=== PATIENT | female | born 1960 | race Caucasian/White ===

== ENCOUNTER 2023-12-14 15:41 | Outpatient (CLI) | payer BC, MEDICAID, SELFPAY ==
--- NOTE | ~2023-12-14 | XR_ITS ---
XR hip RT min 2V DATE: 12/14/2023 16:17 INDICATION: Right hip and lower back pain for 2 weeks TECHNIQUE: AP and lateral views COMPARISON: None FINDINGS: No fracture or dislocation of the right hip or avascular necrosis or bone destruction. Righ t hip joint space appears well preserved. The pubic symphysis and right sacroiliac joint are intact. IMPRESSION: Negative right hip Reviewed, dictated and finalized at location [facility]. 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
--- NOTE | ~2023-12-14 | XR_ITS ---
XR lumbar spine 2-3V DATE: 12/14/2023 16:15 INDICATION: Right hip and lower back pain for 2 years TECHNIQUE: AP, lateral and coned lateral lumbosacral views COMPARISON: None FINDINGS: There is osteopenia. No fracture or bone destruction. There is minimal degenerative spurring of the lumbar spine, but lumbar and lumbosacral interspaces ar e well preserved. Lumbar pedicles are intact. IMPRESSION: Minimal degenerative change Osteopenia Reviewed, dictated and finalized at location [facility]. [facility]
== END 2023-12-14 15:42 | disposition home or self-care (01) ==
LOC: CHSIMG 15:48
PROVIDERS: PCP Registered Nurse; Visit Provider Registered Nurse
DX: M25.551 Pain in right hip (principal); M54.50 Low back pain, unspecified; M85.88 Other specified disorders of bone density and structure, other site
CPT/HCPCS: 72100; 73502

== ENCOUNTER 2023-12-28 23:44 | Emergency (ER) | payer MEDICAID, SELFPAY ==
--- NOTE | ~2023-12-28 | CT_ITS ---
CT of the Abdomen and Pelvis: Indication: Abdominal pain Technique: 2.5 mm axial scans were obtained through the abdomen and pelvis following intravenous adm inistration of 100 cc of Omnipaque 350. Dose reduction technique was used on this scan by utilizing a utomated exposure control and iterative reconstruction technique. The dose-length product (DLP) was 9 23.82 mGy-cm. Findings: Scans through the lung bases are unremarkable. Small hiatal hernia present. The liver, spleen, pancreas, gallbladder, adrenals and kidneys are within normal limits. No evidence of aortic aneurysm. No lymphadenopathy. No bowel obstruction or bowel wall thickening. There is no evidence to suggest acute appendicitis. Sm all fat-containing ventral hernia present with small amount of fluid within the hernia. Images through the pelvis were performed. Urinary bladder unremarkable. No adnexal mass seen. No asci chuck. Impression: Small umbilical hernia with fat and small amount of fluid present. Small hiatal hernia. Reviewed, dictated and finalized at [facility]. NET MAKER Impression: Small umbilical hernia with fat and small amount of fluid present. Small hiatal hernia.
[2023-12-28 23:44] VITALS: BP 151/81; PULSE 89; RESP 18; TEMP 36.1; O2SAT 98
--- NOTE | 2023-12-28 23:46 | ED.ABDPAIN ---
HPI - Abdominal Pain General Chief Complaint: Abdominal Pain Stated Complaint: abdominal pain Time Seen by Provider: 12/28/23 23:45 Source: patient Mode of arrival: ambulatory Limitations: no limitations History of Present Illness HPI narrative: 63-year-old female with a history of obesity,GERD status post surgery, hypothyroidism, panic attacks presents to the ER with a 2 week history of -- right flank abdominal pain. She went to her primary care physician and received naproxen without any improvement in abdominal pain. No fever or chills -- 2 episodes of vomiting. No diarrhea. No dysuria or hematuria. MD elicited complaint: abdominal pain and flank pain Pertinent past history: other ( GERD) Onset (ago): week(s) ( 2 weeks) Pain Consistency: constant Location: RLQ Severity: moderate Quality: aching Radiation: none Migration to: no migration Exacerbating factors: nothing Relieving factors: nothing Associated symptoms: nausea and vomiting Related Data Home Medications Medication Instructions Recorded Confirmed Dialyvite Vitamin D 1 pill PO DAILY 12/28/23 12/29/23 Unithroid 137 mcg PO DAILY 12/28/23 12/29/23 duloxetine 20 mg capsule,delayed 20 mg PO DAILY 12/28/23 12/29/23 release (Cymbalta) metformin 500 mg tablet 500 mg PO DAILY 12/28/23 12/29/23 naproxen 500 mg tablet 500 mg PO DAILY 12/28/23 12/29/23 omeprazole 20 mg PO DAILY 12/28/23 12/29/23 Allergies Allergy/AdvReac Type Severity Reaction Status Date / Time adhesive tape Allergy Other Verified 12/28/23 23:57 pseudoephedrine Allergy Other Verified 12/28/23 23:57 [From [facility]] Review of Systems Review of Systems: All systems reviewed & are unremarkable except as noted in HPI and below Constitutional: Constitutional: Reports as per HPI and Reports no additional constitutional complaints Eyes: Eyes: Reports as per HPI and Reports no additional eye complaints ENT: Reports system reviewed and no additional complaints, except as documented and Reports as per HPI Cardiovascular: Cardiovascular: Reports as per HPI and Reports no additional cardiovascular complaints Respiratory: Respiratory: Reports as per HPI and Reports no additional respiratory complaints Gastrointestinal: Gastrointestinal: Reports as per HPI, Reports no additional gastrointestinal complaints, Reports abdominal pain, Reports nausea and Reports vomiting Genitourinary: Genitourinary: Reports no additional female genitourinary complaints Musculoskeletal: Musculoskeletal: Reports no additional musculoskeletal complaints Integumentary/Breasts: Skin/Breast: Reports system reviewed and no additional complaints, except as docu and Reports as per HPI Neurologic: Reports system reviewed and no additional complaints, except as documented and Reports as per HPI Psychiatric: Psychiatric: Reports no additional psychiatric complaints and Reports as per HPI Endocrine: Endocrine: Reports no additional endocrine complaints and Reports as per HPI Hematologic/Lymphatic: Hematologic/Lymphatic: Reports no additional hematologic/lymphatic complaints and Reports as per HPI Allergic/Immunologic: Allergic/Immunologic: Reports no additional allergic/immunologic complaints and Reports as per HPI PMFSH Past Medical History Medical History (Updated 12/29/23 @ 02:38 by Addison Delgado MD) section wound complication Hypothyroidism Obesity Surgical History Surgical History (Updated 12/28/23 @ 23:59 by Addison Delgado MD) H/O rotator cuff surgery History of fundoplication Exam Const: General: healthy appearing and no acute distress Nutritional Appearance: well nourished and obese Orientation/consciousness: patient oriented x3 Limitations: no limitations HENMT: Head: normal to inspection Ears: external ears normal Face/Nose/Sinus: Normal external nose present Face and sinus: normal facial exam Mouth: Yes Normal oral and palatal mucosa present Throat: posterior oropharynx
--- NOTE | 2023-12-29 00:02 | PC.NURSE ---
phlebotomy at bedside for lab draw.
[2023-12-29 00:07] LABS: Basophils Absolute Auto 0.03 K/mm3 (0.00-0.10); Basophils Percent Auto 0.4 % (0.0-1.0); Eosinophils Absolute Auto 0.32 K/mm3 (0.02-0.50); Eosinophils Percent Auto 3.8 % (1.0-6.0); Hematocrit 40.7 % (35.0-49.0); Hemoglobin 12.5 g/dL (12.0-15.0); Immature Granulocyte Absolute 0.03 K/mm3 (0.00-0.00); Immature Granulocyte Percent A 0.4 % (0.0-0.0); Lymphocytes Absolute Auto 2.62 K/mm3 (1.10-4.50); Mean Corpuscular HGB Conc 30.7 g/dL (32.0-36.0); Mean Corpuscular Hemoglobin 25.7 pg (27.0-31.0); Mean Corpuscular Volume 83.6 fL (78.0-102.0); Mean Platelet Volume 9.6 fl (9.2-11.8); Monocytes Absolute Auto 0.77 K/mm3 (0.10-0.90); Monocytes Percent Auto 9.1 % (2.0-11.0); Neutrophils Absolute Auto 4.7 K/mm3 (1.7-7.2); Neutrophils Percent Auto 55.3 % (50.0-70.0); Platelet Count Result 270 K/mm3 (150-420); Red Blood Count 4.87 M/mm3 (4.20-5.40); Red Cell Distribution Width 14.8 % (11.6-14.4); White Blood Count 8.5 K/mm3 (4.8-10.8)
[2023-12-29 00:26] LABS: Alanine Aminotransferase 21 U/L (14-59); Albumin Level 3.4 g/dL (3.4-5.0); Alkaline Phosphatase 81 U/L (46-116); Anion Gap 7 mmol/L (8-16); Aspartate Amino Transferase 16 U/L (15-37); Bilirubin,Total 0.3 mg/dL (0.00-1.00); Blood Urea Nitrogen 18 mg/dL (7-18); Calcium 8.8 mg/dL (8.5-10.1); Carbon Dioxide 30 mmol/L (21-32); Chloride 103 mmol/L (98-108); Estimated Glomerular Filt Rate 57; Glucose 104 mg/dL (70-99); Lipase 41 U/L (16-77); Osmolality Calculated 291 mOsm/kg (285-295); Potassium 4.2 mmol/L (3.5-5.1); Sodium 140 mmol/L (136-145); Total Protein 7.1 g/dL (6.4-8.2); Troponin I 5.9 ng/L (0.00-60.4)
[2023-12-29 00:29] LABS: Lactic Acid Reflex 1.1 mmol/L (0.4-2.0)
--- NOTE | 2023-12-29 00:29 | PC.NURSE ---
patient awake and alert, ambulatory to bathroom at this time.
[2023-12-29 00:39] VITALS: BP 146/88; PULSE 83; RESP 18; O2SAT 96
[2023-12-29 00:39] LABS: Appearance Urine Clear (Clear); Bilirubin Urine Negative (Negative); Blood Urine Negative (Negative); Color Urine Light Yellow (Yellow); Glucose Urine UA Negative (Negative); Ketones Urine Negative (Negative); Leukocyte Esterase Ur Negative LEU/UL (Negative); Nitrate Urine Negative (Negative); Protein Urine Negative (Negative); Urobilinogen Urine 0.2 mg/dL (0.2-1.0); pH Urine 6.5 (5.0-8.0)
[2023-12-29 00:40] LABS: Add Urine Microscopic? NO
--- NOTE | 2023-12-29 00:47 | PC.NURSE ---
Dr. Delgado at patient bedside reviewing results and plan with patient.
[2023-12-29] MEDS: LACTATED RINGERS 500 ML 999 ML IV CONT (00:59)
--- NOTE | 2023-12-29 00:59 | PC.NURSE ---
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
--- NOTE | 2023-12-29 01:16 | PC.NURSE ---
patient returned from imaging, resting on stretcher, ivf infusing. patient given secondary pillow for RUE and bed adjusted. patient given warm blanket for comfort. light dimmed for patient to rest. update provided, call light within reach.
--- NOTE | 2023-12-29 01:55 | PC.NURSE ---
patient ambulatory to bathroom, awaiting results of imaging. ivf infused. nad. call light within reach.
--- NOTE | 2023-12-29 02:40 | PC.NURSE ---
Dr. Delgado at bedside reviewing results of imaging with patient.
[2023-12-29 02:46] VITALS: BP 141/87; PULSE 79; RESP 18; TEMP 36.3; O2SAT 98
[2023-12-29] MEDS: ONDANSETRON HCL ODT 4 MG TABLET PO (03:10)
--- NOTE | 2023-12-29 03:15 | PC.NURSE ---
RN spent > 15 minutes with patient at time of discharge. Patient medicated for reported nausea prior to leaving facility per ERP verbal order. Patient awake and alert without distress and given names of blood work and imaging performed and medications given per request. Patient ambulated without difficulty while exiting the dept, encouraged to follow up with PCP (contacts provided).
== END 2023-12-29 03:15 | disposition home or self-care (01) ==
PROVIDERS: Emergency Provider Internal Medicine Critical Care Medicine
DX: R10.31 Right lower quadrant pain (principal); E03.9 Hypothyroidism, unspecified; Z79.899 Other long term (current) drug therapy; Z79.84 Long term (current) use of oral hypoglycemic drugs; Z79.1 Long term (current) use of non-steroidal anti-inflammatories (NSAID)
CPT/HCPCS: 36415; 74177; 80053; 81003; 83605; 83690; 84484; 85025; 96360; 99284; A9270; J7120; Q9967

== ENCOUNTER 2024-12-31 09:39 | Emergency (ER) | payer OTHER, SELFPAY ==
[2024-12-31 09:58] VITALS: BP 121/66; PULSE 97; RESP 16; TEMP 36.5; O2SAT 97
--- NOTE | 2024-12-31 10:52 | ED.URI ---
HPI - URI/Sore Throat General Chief Complaint: Upper Respiratory Infection Stated Complaint: Cough Time Seen by Provider: 12/31/24 10:45 Source: patient, RN notes reviewed and old records reviewed Mode of arrival: ambulatory Limitations: no limitations History of Present Illness HPI Narrative: 64-year-old female presents to [facility] with complaints of 4-5 day history of deep cough. Patient reports she has not had a fever or any sinus congestion or drainage, denies any body aches. Patient reports that she has been taking DayQuil, NyQuil and Zicam for her symptoms without improvement. Patient reports that she has noted some wheezing when supine. MD elicited complaint: cough and other (some wheezing) Onset (ago): day(s) (4-5 days) Severity: moderate Able to tolerate fluids by mouth: Yes Treatments prior to arrival: other (DayQuil NyQuil and Zicam) Related Data Home Medications ?Medication ?Instructions ?Recorded ?Confirmed ?Last Taken ?Type Dialyvite Vitamin D 1 pill PO DAILY 12/28/23 12/29/23 Unknown History Unithroid 137 mcg PO DAILY 12/28/23 12/29/23 Unknown History duloxetine 20 mg capsule,delayed 20 mg PO DAILY 12/28/23 12/29/23 Unknown History release (Cymbalta) metformin 500 mg tablet 500 mg PO DAILY 12/28/23 12/29/23 Unknown History naproxen 500 mg tablet 500 mg PO DAILY 12/28/23 12/29/23 Unknown History omeprazole 20 mg PO DAILY 12/28/23 12/29/23 Unknown History Allergies Allergy/AdvReac Type Severity Reaction Status Date / Time adhesive tape Allergy Other Verified 12/28/23 23:57 pseudoephedrine (From Allergy Other Verified 12/28/23 23:57 Sudafed) Review of Systems Review of Systems: CONSTITUTIONAL: Denies malaise, chills, sweats, or fever. EYES: Denies visual changes, redness, or discharge. ENT: Reports no rhinorrhea, congestion, sinus pain, no otalgia and no sore throat. CARDIOVASCULAR: Denies chest pain, palpitations, or edema. RESPIRATORY: Reports cough. and wheezing? Denies dyspnea. GASTROINTESTINAL: Denies abdominal pain, nausea, vomiting, diarrhea SKIN: Denies rash or itching. MUSCULOSKELETAL: Denies myalgia. NEUROLOGIC: Denies headache. All systems reviewed & are unremarkable except as noted in HPI and below PMFSH Past Medical History Medical History (Updated 01/02/25 @ 09:33 by Cassandra Dudley NP) Bronchitis Diabetes GERD (gastroesophageal reflux disease) section wound complication Hypothyroidism Obesity Surgical History Surgical History (Updated 01/02/25 @ 09:32 by Cassandra Dudley NP) H/O: section H/O thyroidectomy H/O rotator cuff surgery History of fundoplication Social History Social History (Updated 01/02/25 @ 09:33 by Cassandra Dudley NP) Smoking status: Never smoker Alcohol intake: current Alcohol use details: social Substance use type: does not use Living arrangements: with family Gender identity (if verbalized by the patient): Female Comments At time of signature, agree with nursing past medical, surgical, social and family history. There is no relevant family history pertinent to the presenting complaint Exam Narrative: GENERAL: Well-appearing, well-nourished, and in no acute distress. HEAD: Normocephalic EYES: PERRLA, conjunctivae clear ENT: Nares clear, turbinates edematous and erythematous, clear discharge. Mucous membranes moist. TM pearly durand with dull light reflex bilaterally; no tragal tenderness. Oropharynx erythematous without lesions. Tonsils not enlarged and without exudate, no drooling, no hoarseness, no trismus, uvula midline, post nasal drainage. NECK: Supple. No lymphadenopathy CHEST: Shattered wheezing on auscultation, breath sounds equal. + wheezing, no rhonchi, rales, or stridor. No respiratory distress, speaks in full sentences.cough noted,SAO2 97% on room air HEART: Regular rate and rhythm. No murmur heard. SKIN: Warm, dry, no rash. NEURO: Alert and oriented x3. PSYCH: Normal mood and affect Course Course Emergency Course: Patient is aware of diagnosis, understands and agrees to treatment plan.? Anticipatory guidance given.? Patient agrees to follow-up as directed and is aware of reasons to seek care at the emergency department. Portions of this record may have been created with voice recognition software Level of Care: Express Care Visit Vital Signs Vital signs: Vital Signs Temperature 36.5 C 12/31/24 09:58 Pulse Rate 97 12/31/24 09:58 Respiratory Rate 16 12/31/24 09:58 Blood Pressure 121/66 12/31/24 09:58 Pulse Oximetry 97 12/31/24 09:58 Oxygen Delivery Room Air 12/31/24 09:58 Temperature 36.5 C 12/31/24 09:58 Pulse Rate 97 12/31/24 09:58 Respiratory Rate 16 12/31/24 09:58 Blood Pressure 121/66 12/31/24 09:58 Pulse Oximetry 97 12/31/24 09:58 Oxygen Delivery Room Air 12/31/24 09:58 Reviewed MDM - URI/Sore Throat MDM Narrative Medical decision making narrative: Differential diagnosis considered: Griffiths virus, strep pharyngitis, allergic rhinitis, upper respiratory tract infection, sinusitis, rhinosinusitis, nasopharyngitis. viral pharyngitis, otitis media, otitis externa, pneumonia, bronchitis, viral cough syndrome, viral syndrome, and influenza.? Exam findings show no acute concerns or changes; patient is non-toxic appearing and is in no distress.? Patient is appropriate for outpatient treatment and follow-up. Differential Diagnosis Differential diagnosis: Likely upper respiratory infection, viral infection, bronchitis and other (acute cough) Medical Records Attestation: I reviewed the patient's medical records. Lab Data Attestation: I reviewed the patient's lab results. Critical Care Time Critical Care Time Critical Care Time: No Discharge Plan Discharge Clinical Impression: Bronchitis Patient Disposition: Home, Self-Care Condition: Stable Instructions: Antibiotic Form, Acute Bronchitis (ED) Additional Instructions: Increase fluids especially juices and water [id number] cough and cold medicine of your choice for your symptoms Zyrtec, Claritin or Ida daily Continue your inhaler/nebulizer as directed Steroids as directed--take with food heat to the face 20-30 minutes 4-6 times a day for pain Salt water gargles, throat lozenges or throat sprays as desired Antibiotic as directed--finished the medication If your symptoms persist, change or worsen significantly before you can contact your personal physician then please, without delay, go to the emergency department for further evaluation. Follow-up with PCP in 7-10 days or sooner if needed Patient Language: Z[place]ian Prescriptions: New prednisone 20 mg tablet 20 mg PO BID Qty: 10 0RF Rx Instructions: Take with food albuterol sulfate [Ventolin HFA] 90 mcg/actuation HFA aerosol inhaler 2 puff inhalation QID PRN (Reason: shortness of breath or wheezing) Qty: 6.7 0RF Rx Instructions: Use routinely for the next 2 days then as needed Whenever is covered with your insurance amoxicillin 500 mg capsule 500 mg PO Q12H Qty: 20 0RF No Action metformin 500 mg Tablet 500 mg PO DAILY naproxen 500 mg tablet 500 mg PO DAILY duloxetine [Cymbalta] 20 mg capsule,delayed release(DR/EC) 20 mg PO DAILY Dialyvite Vitamin D 1 pill PO DAILY Unithroid 137 mcg PO DAILY omeprazole capsule 20 mg PO DAILY Follow-up/Referrals: Leland,Irma Cruz MD [Primary Care Provider] - Stand Alone Forms: Work/School Release IP Time of Disposition: 11:06 Quality Curtis Coma Scale Eyes: Open Verbal: Oriented and Alert Motor: Follows Commands Curtis Coma Total Score: 15
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
--- OUTSIDE RECORDS SUMMARY | 2024-12-31 12:23 | XMS_ITS | Encounter Summary ---
Author Organization [facility] Healthcare Address [address] [place] [address] Care Team Providers Care Land[employer] Field Technician Name Role Phone Miscellaneous, Not In File Primary Care Provider Unavailable Encounter Details Date Type Department Care Team (Late st Contact Info) Description 08/22/2023 9:41 AM CDT Hospital Encounter [facility] [address] [place] [phone] Social History Tobacco Use Types Packs/Day Years Used Date Smoking Tobacco: Never Smokeless Tobacco: Never Personal Safety Answer Date Recorded Have you ever been in or are you currently in a harmful physical or emotional relationship or is someone making you feel afraid or unsafe? Denies 06/13/2024 Comments Unknown Sex and Gender Information Value Date Recorded Sex Assigned at Not on file Legal Sex Female 10:04 AM CDT Gender Identity Female 03/26/2024 9:29 AM CDT Sexual Orientation Straight 03/26/2024 9: 29 AM CDT documented as of this encounter Plan of Treatment Upcoming Encounters Date Type Department Care Team (Late st Contact Info) Description 03/26/2025 9:25 AM CDT Hospital Encounter [address] [address] Darek Parr MD [address] [place] [address] [address] 03/26/2025 9:25 AM CDT - 03/26/2025 9:55 AM CDT Surgery [address] [address] Darek Parr MD [address] [place] [address] [place] [address] COLONOSCOPY Scheduled Procedures Name Priority Associated Diagnoses Date/Ti me COLONOSCOPY Personal history of colonic polyps Encounter for screening colonoscopy 03/26/2025 9:25 AM CDT documented as of this encounter Procedures Procedure Name Priority Date/Time Associated Diagnosis Comments XR SHOULDER RIGHT 2 OR MORE VIEWS Schedule Routine, Read Routine (OP Routine) 08/22/2023 9:53 AM CDT Right shoulder pain, unspecified chronicity documented in this encounter Results * XR Shoulder Right 2 or More Views (08/22/2023 9:53 AM CDT) Anatomical Region Laterality Modality Upper Extremities, Shoulder Right Comp uted Radiography Narrative 08/22/2023 10:23 AM CDT AP oblique axillary transscapular views of the right shoulder revealed a sloped acromion with moderate arthritic changes of glenohumeral and acromioclavicular joints us Orlando Sandoval MD IMG XR PROCEDURES Final Res ult documented in this encounter Visit Diagnoses Not on filedocumented in this encounter Care Teams [employer] Field Technician Relationship Specialty Start Date End Date Miscellaneous, Not In File PCP - General 07/07/2309/07 documented as of this encounter
--- OUTSIDE RECORDS SUMMARY | 2024-12-31 12:23 | XMS_ITS | Referral Summary ---
Author Organization [facility] Address [address] [place] [address] Care Team Providers Care Embosser Apprentice Name Role Phone Irma Ha MD Primary Care Provider [phone] Encounters Date Type Department Care Team Description 12/19/2024 Telephone [facility] at [address] [phone] Alena Boogie DO 12/18/2024 Orders Only [facility] at [address] [phone] Alena Boogie DO 12/18/2024 2:30 PM PHARMACY TECHNICIAN ASSISTANT Office Visit [facility] at [address] [phone] Alena Boogie DO Hypothyroidism, unspecified type (Primary Dx); Class 2 obesity due to excess calories without serious comorbidity with body mass index (BMI) of 36.0 to 36.9 in adult; Pre-diabetes from Last 3 Months Allergies Active Allergy Reactions Criticality Noted Date Comments Adhesive Rash Medium 11/24/2023 Adhesive Tape-Silicones Unknown 01/30/2018 Pseudoephedrine Unknown 08/22/2023 Medications azithromycin (ZITHROMAX) 250 mg tablet 07/21/20 23 Active benzonatate (TESSALON) 200 mg capsule 07/21/20 23 Active cholecalciferol 25 mcg (1,000 unit) tablet Take 2 tablets (2,000 Units total) by mouth daily Active DULoxetine DR (CYMBALTA) 20 mg capsule TAKE 1 CAPSULE BY MOUTH TWICE DAILY. DUE FOR ANNUAL PHYSICAL 02/01/20 Active metFORMIN XR (GLUCOPHAGE XR) 500 mg 24 hr tablet Take by mouth 11/17/19 23 Active omeprazole (PriLOSEC) 20 mg capsule Take 1 capsule (20 mg total) by mouth 2 (two) times a day 12/06/19 23 Active predniSONE (DELTASONE) 20 mg tablet 07/21/20 23 Active traMADoL (ULTRAM) 50 mg tablet Take 1 tablet (50 mg total) by mouth every 8 (eight) hours as needed 08/11/20 22 Active lidocaine (LIDODERM) 5 % Place 1 patch on the skin daily for 14 days Remove & discard patch within 12 hours or as directed by MD. 14 patch 06/13/20 24 Active methocarbamoL (ROBAXIN) 500 mg tablet Take 1 tablet (500 mg total) by mouth 2 (two) times a day 20 tablet 06/13/20 24 Active naproxen (NAPROSYN) 500 mg tablet Take 1 tablet (500 mg total) by mouth 2 (two) times a day with meals 30 tablet 06/13/20 24 Active tirzepatide, weight loss, (Zepbound) 2.5 mg/0.5 mL pen injectorIndicat ions:Class 2 obesity due to excess calories without serious comorbidity with body mass index (BMI) of 36.0 to 36.9 in adult,Pre-diabe chuck Inject 0.5 mL (2.5 mg total) under the skin once a week 0.5 mL 6 12/18/19 25 Active levothyroxine (SYNTHROID) 125 mcg tablet Take 1 tablet (125 mcg total) by mouth daily 30 tablet 12/18/19 026 Active levothyroxine (Unithroid) 137 mcg tablet 02/22/20 025 Discontinued [place] Thyroid 60 mg tablet Take 1 tablet (60 mg total) by mouth daily 12/13/19 025 Discontinued(Al ternate therapy) levothyroxine (SYNTHROID) 150 mcg tablet Take 1 tablet (150 mcg total) by mouth daily 30 tablet 11 02/04/20 25 02/04/2 025 Discontinued(Al ternate therapy) Active Problems Problem Noted Date Diagnosed Date Personal history of colonic polyps 05/29/2024 Encounter for screening colonoscopy 05/29/2024 Traumatic incomplete tear of right rotator cuff 09/08/2023 Assessment & Plan (11/24/2023 11:16 AM PHARMACY TECHNICIAN ASSISTANT): Patient is four years out from original work-related injury. She still has ongoing issues with the arm and limitations that should be considered permanent. The patient may want to look for other jobs if work can not accommodate her but she should avoid lifting greater than 10 lb or anything that involves repetitive overhead reaching. Assessment & Plan (09/08/2023 8:34 AM CDT): Patient shoulders concerning for incomplete healing of her rotator cuff tear versus a recurrent tearing of the rotator cuff that was previously damaged. Having a previous tear would make her susceptible to tearing. With her lack of response to cortisone and other measures I would recommend obtaining an updated MRI to evaluate the rotator cuff for tears or other possible causes of her persistent pain in the shoulder. Right rotator cuff tendinitis 08/22/2023 Assessment & Plan (09/26/2023 9:23 AM PHARMACY TECHNICIAN ASSISTANT): Patient has residual rotator cuff tendinitis. By MRI there is no full-thickness rotator cuff tears but evidence of tendinopathy. Would have physical therapy working on a rotator cuff rehab program with modalities. Assessment & Plan (08/22/2023 10:22 AM CDT): Patient has moderate arthritic changes of the glenohumeral and acromioclavicular joints with residual rotator cuff tendinitis following rotator cuff repair. After reviewing the treatment options patient elected undergo a cortisone injection today to the severity of her symptoms. She should continue working on stretching exercises. She most likely should avoid rapid movements with the arm or heavy lifting especially at arm's length or overhead position. She is no longer working in the position where she got hurt so a work note was not needed Acute cystitis without hematuria 04/26/2023 Shortness of breath 02/11/2021 Obesity (BMI 30-39.9) 02/04/2021 Chest tightness 01/13/2021 Dizziness 01/13/2021 Overview (08/22/2023): Last Assessment & Plan: Etiology not yet clear. Labs and EKG ordered. Chest x-ray ordered. Palpitations 01/13/2021 Overview (08/22/2023): Last Assessment & Plan: Etiology not yet clear. She correlate symptoms with after having received her COVID vaccine. Will check labs including inflammatory markers, EKG, and chest x-ray. 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 Gastro-esophageal reflux disease without esophag itis 07/14/2018 Generalized anxiety disorder 07/14/2018 Hypothyroidism, acquired, autoimmune 07/14/2018 Osteopenia 07/14/2018 Sleep apnea 07/14/2018 Vitamin D deficiency 07/14/2018 Disorder of bone density and structure, unspecif ied 03/04/2016 Osteochondropathy 11/29/2013 Goiter 08/30/2013 Hypothyroidism 08/30/2013 Social History Tobacco Use Types Packs/Day Years Used Date Smoking Tobacco: Never Smokeless Tobacco: Never Tobacco Cessation:Counseling Given: Not Answered Personal Safety Answer Date Recorded Have you [...] Orientation Straight 03/26/2024 9: 29 AM CDT Last Filed Vital Signs Vital Sign Reading Time Taken Comments Blood Pressure 114/64 12/18/2024 1:42 PM PHARMACY TECHNICIAN ASSISTANT Pulse 82 12/18/2024 1:42 PM PHARMACY TECHNICIAN ASSISTANT Temperature 37.1 C (98.7 F) 06/13/2024 4:20 PM CDT Respiratory Rate 16 06/13/2024 4:20 PM CDT Oxygen Saturation 98% 06/13/2024 4:20 PM CDT Inhaled Oxygen Concentration - - Weight 80.2 kg (176 lb 11.2 oz) 12/18/2024 1:42 PM PHARMACY TECHNICIAN ASSISTANT Height 147.3 cm (4' 10 ) 12/18/2024 1:42 PM PHARMACY TECHNICIAN ASSISTANT Body Mass Index 36.93 12/18/2024 1:42 PM PHARMACY TECHNICIAN ASSISTANT Plan of Treatment Upcoming Encounters Date Type Department Care Team (Late st Contact Info) Description 03/26/2025 9:25 AM CDT Hospital Encounter [address] [address] Darek Parr MD [address] [place] [address] [place] [id number] 03/26/2025 9:25 AM CDT - 03/26/2025 9:55 AM CDT Surgery [address] [address] Darek Parr MD [address] [place] [address] [address] [place] [id number] COLONOSCOPY Scheduled Procedures Name Priority Associated Diagnoses Date/Ti me COLONOSCOPY Personal history of colonic polyps Encounter for screening colonoscopy 03/26/2025 9:25 AM CDT Procedures Procedure Name Priority Date/Time Associated Diagnosis Comments TSH Routine 11/29/2024 HEMOGLOBIN A1C Routine 11/29/2024 DEXA AXIAL SKELETON BONE DENSITY 1 OR MORE SITES Schedule Routine, Read Routine (OP Routine) 03/27/2024 2:54 PM CDT Age-related osteoporosis without current pathological fracture from Last 3 Months or Most Recently Relevant to Health Maintenance Results * (ABNORMAL) TSH (11/29/2024) Scribed TSH 0.11(A) 0.45 - 4.50 mcU/mL EXTERNAL LAB Blood 11/29/2024 us Historical Provider LAB BLOOD ORDERABLES Joanna l Result EXTERNAL LAB * (ABNORMAL) Hemoglobin A1c (11/29/2024) SCRIBED Hemoglobin A1c 6.0(A) 4.8 - 5.6 % EXTERNAL LAB Blood 11/29/2024 us Historical Provider LAB BLOOD ORDERABLES Joanna l Result EXTERNAL LAB * Dexa Axial Skeleton Bone Density 1 or 2 Site (03/27/2024 2:54 PM CDT) Anatomical Region Laterality Modality Body N/A Other 03/27/2024 8:21 PM CDT Narrative 03/27/2024 8:21 PM CDT EXAM DESCRIPTION: DEXA AXIAL SKELETON BONE DENSITY 1 OR MORE SITES REASON FOR STUDY: 63 y/o year old F with given history of: Age-Related Osteoporosis without Current Pathological Fracture Postmenopausal Medicaid Eligibility Specialist/Model: [employer] SL (S/N [id number]) CLINICAL INFORMATION: Current height: 57 inches Maximum height: 57 inches Weight: 169 pounds Risk factors: Postmenopausal COMPARISON: None available FINDINGS: AP LUMBAR SPINE L1-L4: Total BMD is 0.730 g/cm2 T-score is -2.9 LEFT HIP: Total BMD is 0.828 g/cm2 T-score is -0.9 Femoral neck BMD is 0.754 g/cm2 T-score is -0.9 FRAX: FRAX not reported due to T-scores of hip, femoral neck and/or spine being at or below -2.5 (Osteoporosis). IMPRESSION: Osteoporosis. REFERENCE: Bone mineral density: T-Score: Normal (T-score above or = -1.0) Low bone mass (T-score between -1.0 and -2.5) replaces the previously used term osteopenia Osteoporosis (T-score = or below -2.5) Z-Score: Within the expected range for age (Z-score above -2.0) Below the expected range for age (Z-score is -2.0 or below) Please see below follow up recommendations. Medical evaluation for secondary causes of low bone mineral density may be appropriate. FRAX is a World Health Organization validated fracture risk assessment tool that calculates a person's 10 year probability of a major osteoporosis related fracture and hip fracture. According to the National Osteoporosis Foundation guidelines, postmenopausal women and men age 50 or older with low bone mass and a 10 year probability of a major osteoporosis related fracture = or greater than 20% or a 10 year probability of a hip fracture = or greater than 3% should be considered for pharmacological treatment for the prevention of osteoporosis. For further information, including treatment recommendations, please refer to the 2019 ISCD Official Positions (http://www.iscd.org) and the NOF's Clinician's Guide to Prevention and Treatment of Osteoporosis (http://www.nof.org/professionals/clinical-guidelines) THIS IS AN ELECTRONICALLY VERIFIED FINAL REPORT 03/27/2024 8:21 PM - Electronically signed by Rhys Nascimento M.D. MF: PORTIA Report ID: [id number] Reading Location: [place] [address] Procedure Note Rhys Nascimento MD - 03/27/2024 EXAM DESCRIPTION: DEXA AXIAL SKELETON BONE DENSITY 1 OR MORE SITES REASON FOR STUDY: 63 y/o year old F with given history of:Age-Related Osteoporosis without Current Pathological Fracture Postmenopausal Medicaid Eligibility Specialist/Model: [employer] Discovery SL (S/N [id number]) CLINICAL INFORMATION: Current height: 57 inches Maximum height: 57 inches Weight: 169 pounds Risk factors: Postmenopausal COMPARISON: None available FINDINGS: AP LUMBAR SPINE L1-L4: Total BMD is 0.730 g/cm2 T-score is -2.9 LEFT HIP: Total BMD is 0.828 g/cm2 T-score is -0.9 Femoral neck BMD is 0.754 g/cm2 T-score is -0.9 FRAX: FRAX not reported due to T-scores of hip, femoral neck and/or spine beingat or below -2.5 (Osteoporosis). IMPRESSION: Osteoporosis. REFERENCE: Bone mineral density: T-Score: Normal (T-score above or = -1.0) Low bone mass (T-score between -1.0 and -2.5) replaces thepreviously used term osteopenia Osteoporosis (T-score = or below -2.5) Z-Score: Within the expected range for age (Z-score above -2.0) Below the expected range for age (Z-score is -2.0 or below) Please see below follow up recommendations. Medical evaluation forsecondary causes of low bone mineral density may be appropriate. FRAX is a World Health Organization validated fracture risk assessmenttool that calculates a person's 10 year probability of a major osteoporosisrelated fracture and hip fracture. According to the National OsteoporosisFoundation guidelines, postmenopausal women and men age 50 or older with low bonemass and a 10 year probability of a major osteoporosis related fracture = or greater than 20% or a 10 year probability of a hip fracture = or greaterthan 3% should be considered for pharmacological treatment for the preventionof osteoporosis. For further information, including treatment recommendations, please referto the 2019 ISCD Official Positions (http://www.iscd.org) and the NOF's Clinician's Guide to Prevention and Treatment of Osteoporosis (http://www.nof.org/professionals/clinical-guidelines) THIS IS AN ELECTRONICALLY VERIFIED FINAL REPORT 03/27/2024 8:21 PM - Electronically signed by Rhys Nascimento M.D. MF: PORTIA Report ID: [id number] Reading Location: [place] [address] Irma Ha MD IM DXA PROCEDURES Final Resu lt from Last 3 Months or Most Recently Relevant to Health Maintenance Insurance MEDICARE [email or web address] OPEN ACCESS WORKERS COMPENSATION GENERIC * Guarantor: SMALL CASUALTY CLAIMS Account Type Relation to Patient Date of Phone Billing Address Workers [employer] [address] [place] [address] WORKERS COMPENSATION GENERIC IDPA Care Teams Embosser Apprentice Relationship Specialty Start Date End Date Irma Ha MD [address] [place] [address] PCP - General Obstetrics and Gynecology 05/29/24
--- OUTSIDE RECORDS SUMMARY | 2024-12-31 12:23 | XMS_ITS | Clinical Summary ---
Author Organization [facility] Address [address] [place] [address] Care Team Providers Care Regional Refrigerated Cdl Truck Driver Name Role Phone Irma Ha MD Primary Care Provider [phone] Allergies Active Allergy Reactions Criticality Noted Date [...] TWICE DAILY. DUE FOR ANNUAL PHYSICAL 02/01/20 23 Active metFORMIN XR (GLUCOPHAGE XR) 500 mg [...] within 12 hours or as directed by . 14 patch 06/13/20 24 Active methocarbamoL (ROBAXIN) [...] the skin once a week 0.5 mL 12/18/19 25 Active levothyroxine (SYNTHROID) 125 mcg tablet Take 1 tablet (125 mcg total) by mouth daily 30 tablet 12/18/19 25 026 Active levothyroxine (Unithroid) 137 mcg tablet 02/22/20 23 025 Discontinued [place] Thyroid 60 mg tablet Take 1 tablet (60 mg total) by mouth daily 12/13/19 25 025 Discontinued(Al ternate therapy) levothyroxine (SYNTHROID) 150 mcg tablet Take 1 tablet (150 mcg total) by mouth daily 30 tablet 12/18/19 25 025 Discontinued(Al ternate therapy) Active Problems Problem Noted Date Diagnosed Date Personal history of colonic polyps 05/29/2024 Encounter for screening colonoscopy 05/29/2024 Traumatic incomplete tear of right rotator cuff 09/08/2023 Assessment & Plan (11/24/2023 11:16 AM RETAIL OFFICE ASSOCIATE): Patient is four years out from original [...] 08/22/2023 Assessment & Plan (09/26/2023 9:23 AM RETAIL OFFICE ASSOCIATE): Patient has residual rotator cuff tendinitis. By [...] 03/04/2016 Osteochondropathy 11/29/2013 Goiter 08/30/2013 Hypothyroidism 08/30/2013 Encounters Date Type Department Care Team Description 12/19/2024 Telephone [facility] at [address] [phone] Alena Boogie DO 12/18/2024 2:30 PM RETAIL OFFICE ASSOCIATE Office Visit [facility] at [address] [phone] Alena Boogie DO Hypothyroidism, unspecified type (Primary Dx); Class 2 obesity due to excess calories without serious comorbidity with body mass index (BMI) of 36.0 to 36.9 in adult; Pre-diabetes 12/18/2024 Orders Only [facility] at [address] [phone] Alena Boogie DO from Last 3 Months Medical History Medical History Date Comments History of 1999 Gastro-esophageal reflux 2000 Rotator cuff arthropathy 2022 Social History Tobacco Use Types Packs/Day Years [...] Orientation Straight 03/26/2024 9: 29 AM CDT Obstetrics History Last Filed Vital Signs Vital Sign Reading Time Taken Comments Blood Pressure 114/64 12/18/2024 1:42 PM RETAIL OFFICE ASSOCIATE Pulse 82 12/18/2024 1:42 PM RETAIL OFFICE ASSOCIATE Temperature 37.1 C (98.7 F) 06/13/2024 4:20 PM CDT Respiratory Rate 16 06/13/2024 4:20 PM CDT Oxygen Saturation 98% 06/13/2024 4:20 PM CDT Inhaled Oxygen Concentration - - Weight 80.2 kg (176 lb 11.2 oz) 12/18/2024 1:42 PM RETAIL OFFICE ASSOCIATE Height 147.3 cm (4' 10 ) 12/18/2024 1:42 PM RETAIL OFFICE ASSOCIATE Body Mass Index 36.93 12/18/2024 1:42 PM RETAIL OFFICE ASSOCIATE Plan of Treatment Upcoming Encounters Date Type Department Care Team (Late st Contact Info) Description 03/26/2025 9:25 AM CDT Hospital Encounter [address] [address] Darek Parr MD [address] [place] [address] DR [address] [place] [id number] 03/26/2025 9:25 AM CDT - 03/26/2025 9:55 AM CDT Surgery [address] [address] Darek Parr MD [address] [place] [address] [address] [place] [address] COLONOSCOPY Scheduled Procedures Name Priority Associated Diagnoses Date/Ti me COLONOSCOPY Personal history of colonic polyps Encounter for screening colonoscopy 03/26/2025 9:25 AM CDT Health Maintenance Due Date Last Done Comments Cervical Cancer Screening 1959 Colon Cancer Screening-Colonoscopy 1959 Depression Screening 1959 Fall Risk Assessment 1959 Hepatitis C Screening 1959 Hepatitis B Screening 1977 Pneumococcal vaccine 65+ (1 of 1 - PCV) 2009 Zoster Vaccine (1 of 2) 2009 Covid-19 Vaccine (3 - season) 2024, 12/14/2020 Influenza Vaccine (#1) 2024 08/25/2011 Well Visit 65+ 2024 Breast Cancer Screening-Mammogram 12/13/2024 024, 12/13/2023 Osteoporosis Screening-Bone Density Scan 03/27/2026 03/27/2024, 02/18/2021 DTaP/Tdap/Td Vaccine (2 - Td or Tdap) 11/10/2032 Procedures Procedure Name Priority Date/Time Associated Diagnosis [...] - 4.50 mcU/mL EXTERNAL LAB Blood 11/29/2024 Historical Provider MD LAB BLOOD ORDERABLES Joanna l Result EXTERNAL LAB * (ABNORMAL) Hemoglobin A1c (11/29/2024) SCRIBED Hemoglobin A1c 6.0(A) 4.8 - 5.6 % EXTERNAL LAB Blood 11/29/2024 Historical Provider MD LAB BLOOD ORDERABLES Joanna l Result EXTERNAL [...] Age-Related Osteoporosis without Current Pathological Fracture Postmenopausal Alligator Trapper/Model: [employer] Keyboard (S/N [id number]) CLINICAL INFORMATION: Current height: 57 inches Maximum [...] Rhys Nascimento M.D. MF: PORTIA Report ID: [id number] Reading Location: [address] Note Rhys Nascimento MD - 03/27/2024 EXAM DESCRIPTION: DEXA AXIAL SKELETON BONE DENSITY 1 OR MORE SITES REASON FOR STUDY: 63 y/o year old F with given history of:Age-Related Osteoporosis without Current Pathological Fracture Postmenopausal Alligator Trapper/Model: [employer] Discovery SL (S/N [id number]) CLINICAL INFORMATION: Current height: 57 inches Maximum [...] Rhys Nascimento M.D. MF: PORTIA Report ID: [id number] Reading Location: [place] [address] Irma Ha MD IMG DXA PROCEDURES Final Resu lt from Last 3 Months or Most Recently Relevant to Health Maintenance [place] [address] [employer] OPEN ACCESS WORKERS COMPENSATION GENERIC * Guarantor: SMALL CASUALTY CLAIMS Account Type Relation to Patient Date of Phone Billing Address Workers [employer] [address] [place] [address] WORKERS COMPENSATION GENERIC IDPA Care Teams Regional Refrigerated Cdl Truck Driver Relationship Specialty Start Date End Date Irma Ha MD [address] [place] [address] PCP - General Obstetrics and Gynecology 05/29/24
--- OUTSIDE RECORDS SUMMARY | 2024-12-31 12:24 | XMS_ITS | Data Portability ---
Author Organization [employer], Main Office Address [address] [place] [address] Care Team Providers Care Cargo Vessel Stewardess Name Role Phone JIM RON Orthopedist PEPIN Physical Therapist [phone] Assessment No assessment recorded. Plan of Treatment Reminders Order Date Submit Date Provider Last Modified By Organization Details Last Modified Time Details Appointments None record ed. Lab None record ed. Referral None record ed. Procedures None record ed. Surgeries None record ed. Imaging None record ed. Medication Orders None record ed. Patient TargetsNo targets recorded. Patient InstructionsNo instructions recorded. Reason for Referral None Reported. Results Created Date Observation Date Name Description Value Unit Range Abnormal Flag Note LastModifiedBy Organization Detail LastModifiedTime 10/31/20 23 10/31/2023 audio gram + tympa nogra m No observ ation record ed. [email or web address] [facility] [address] [place] [address], [id number], 11/01/2023 09:05:52 11/03/20 23 10/31/2023 audio gram + tympa nogra m No observ ation record ed. [email or web address] [facility] [address] [place] [address], [id number], 11/03/2023 09:22:28 Result Notes None recorded. 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 Procedures Surgical History None recorded. Imaging Results Imaging Date Name Status LastModified by Organiz ation Details LastModified Time 10/31/2023 audiogram + tympanogram completed [email or web address] [facility] [address] [place], [address], 11/01/2023 09:05:52 10/31/2023 audiogram + tympanogram completed [email or web address] [facility] [address] [place], [address], 11/03/2023 09:22:28 Procedure Notes None recorded. Medical Equipment None Reported. Allergies Allergen ID Allergen Name Allergen Category Reaction Reaction Severity Criticality Documentation Date Start Date Code Code System Note Provider Name and Address Organization Details Recorded Time 02354 Sudafed medicatio n other Not available Not available 10/18/202380926 2 RxNorm ELECT THAI SENSA TION THROU GHOUT BODY KANU Delgado, [facility] [employer] [facility] 3 08:59:04 75164 adhesive tape environme nt,medica tion Not available Not available Not available 10/18/2023 34241 UNK SURGI VERÓNICA TAPE; CAUSE S INFEC TION KANU Delgado, [facility] [employer] [facility] 3 08:59:41 Medications Name Sig Start Date Stop Date Status Note LastModified by Organization Details LastModified Time azithromyci n 250 mg tablet TAKE 2 TABLETS BY MOUTH TODAY, THEN TAKE 1 TABLET DAILY FOR 4 DAYS 10/20 completed Not Available Not Available Not Available benzonatate 200 mg capsule TAKE 1 CAPSULE BY MOUTH THREE TIMES A DAY NEEDED FOR COUGH FOR 5 DAYS 10/20 completed Not Available Not Available Not Available prednisone 20 mg tablet TAKE 2 TABLET (ORAL) DAILY FOR 5 DAYS TAKE IN THE MORNINGS WITH BREAKFAST . 10/20 completed Not Available Not Available Not Available sulfamethox azole 800 mg-trimetho prim 160 mg tablet TAKE 1 TABLET BY MOUTH TWICE A DAY FOR 7 DAYS active Not Available Not Available No t Available ciprofloxac in 0.3 % eye drops INSTILL 5 DROPS INTO AFFECTED EAR(S) TWICE DAILY FOR 7 DAYS 10/20 completed Not Available Not Available Not Available dexamethaso ne 2 mg tablet TAKE 5 TABLETS BY MOUTH ONCE DAILY A ONE TIME DOSE IN THE MORNING FOR 1 DAY 10/20 completed Not Available Not Available Not Available omeprazole 20 mg capsule,del ayed release active Not Available Not Available Not Available metformin ER 500 mg tablet,exte nded release 24 hr active Not Available Not Available Not Available amoxicillin 875 mg-potassiu m clavulanate 125 mg tablet TAKE 1 TABLET BY MOUTH TWICE DAILY FOR 7 DAYS 10/20 completed Not Available Not Available Not Available nitrofurant oin monohydrate /macrocryst als 100 mg capsule 10/20 completed Not Available Not Available Not Available duloxetine 20 mg capsule,del ayed release active Not Available Not Available Not Available omeprazole 10/20 completed Not Available Not Available Not Available metformin 10/20 completed Not Available Not Available Not Available Unithroid 10/20 completed Not Available Not Available Not Available Calcium + Vitamin D active Not Available Not Available No t Available duloxetine 10/20 completed Not Available Not Available Not Available Unithroid 137 mcg tablet active Not Available Not Available Not Available Flowflex COVID-19 Antigen Home Test kit 10/20 completed Not Available Not Available Not Available Vitals Date Recorded Body height Body mass index (BMI) Body weight Body temperature Provider Name and Address Organization Details Last Updated DateTime 10/20/2023 147.32 cm 35.8 kg/m2 04947.73 g 98 [degF] Amee Guzman RN [facility] [employer] 10/20/2023 11:02:05 Social History Question Answer Notes LastModified by Organizat ion Details LastModified Time Tobacco Smoking Status Never Smoker KANU Delgado, [place] [employer] [facility] [employer] 10/18/2023 08:56:02 What Is Your Level Of Alcohol Consumption? Occasional ftrotter Information not available 10/18/2023 Sex: Unknown Functional Status None recorded. Mental Status None recorded. Family History Relationship Description Onset Age of this Age Resolved Age Notes LastModified by Organization Details LastModified Time Father Malignant tumor of pharynx ftrotter Not available 2022 08:56:32 Medical History Condition Response MRSA N ALLERGIES/HAYFEVER N BACK INJECTIONS N LUNG DISEASE/DISORDER N INSOMNIA N HISTORY OF DRUG ABUSE N ESRD N RADIATION / CHEMOTHERAPY N COPD N HIGH CHOLESTEROL / HYPERLIPIDEMIA N HYPERTHYROIDISM N PVD N BLOOD DISEASES N EAR OR HEARING PROBLEMS N HYPOTHYROIDISM Y SHINGLES N DEPRESSION (INCLUDING POST ) N BACK / NECK PROBLEMS N HAVE YOU BEEN HOSPITALIZED OR [facility] IN THE PAST YEAR ? N FAILED BACK SYNDROME N STROKE/TIA N POLYCYSTIC OVARIES N OBESITY N ANEURYSM N HISTORY WITH COMPLICATIONS WITH ANESTHES IA ? N Do you have Advance directive? N USE OF BLOOD THINNERS N NO SIGNIFICANT PAST MEDICAL HISTORY N DIABETES, TYPE N VON WILLIBRAND'S DISEASE N PARATHYROID DISEASE N ENT N SEASONAL ALLERGIES N HEARTBURN / REFLUX Y POST LAMINECTOMY SYNDROME N HEPATITIS / LIVER DISEASE N SLEEP DISORDER Y ARTERIAL INSUFFICIENCY N HEADACHES/MIGRAINES N SEIZURES/EPILEPSY N CHF N PACEMAKER N DIZZINESS N HEART DISEASE/HEART PROBLEMS N AIDS/HIV N NEUROPSYCHOLOGICAL N HYPERTENSION N CANCER: SPECIFY N TOURETTE'S N BLOOD TRANSFUSION N ANESTHESIA COMPLICATIONS N ANEMIA/BLOOD DISORDER N CHRONIC EAR INFECTIONS N ATRIAL FIBRILLATION N AUTOIMMUNE DISEASE N TUBERCULOSIS N Gynecological HistoryNo gynecological history recorded. Obstetrics History GPAL:G 0 P 0 0 0 0 Past Encounters Encounter ID Performer Location Encounter Start Date Encounter Closed Date Diagnosis/Indication Diagnosis SNOMED-CT Code Diagnosis ICD10 Code Diagnosis Note [id number] Nura Watkins MD [facility] [place] [address] [place] [address] 10/20/2023 09:48:35 10/20/2023 11:38:55 Dysfunction of right eustachian tube [id number] 621382 H69.91 Health Concerns Section Related Observation LastModified by Organization Detai ls LastModified Time None Recorded Concern Status LastModified by Organization Details LastModified Time None Recorded Advance Directives Directive None Recorded Payers Encounter Date Sequence Insurance Name Policy Number Policy Hwang Covered Member ID Hwang Member ID Guarantor Name 10/20/2023 1 [place] [id number] Michelle Mclaughlin [id number] Michelle Mclaughlin Notes Date Note Type Note Provider Name and Address Organization Details Recorded Time 10/20/2023 text/html this patient reports that she has had the right ear problems for most of her life in had a sinus infection 2 weeks ago. She was given antibiotics and steroids but still has some problems hearing out of the right ear. She was told that she had ear wax and a blockage. She has not had recent audiogram Nura Watkins MD [address] [place] [address], [place] [address], [place], [address], [place] - [facility] 10/20/2023 11:24:45 OBGyn Episode No OBEpisode recorded.
--- OUTSIDE RECORDS SUMMARY | 2024-12-31 12:24 | XMS_ITS | Clinical Summary ---
Author Organization [facility] Address [address] [place] [id number] Care Team Providers Care Septic Tank Service Technician Name Role Phone A, Unknown Practice Primary Care Provider [phone] Allergies Active Allergy Reactions Criticality Noted Date Comments Pseudoephedrine Unknown 01/03/2024 Tape Rash Low 01/03/2024 Family History Medical History Relation Comments Breast Cancer Maternal Aunt Breast Cancer Paternal Aunt Breast Cancer Sister Relation Status Comments Maternal Aunt Alive Paternal Aunt Alive Sister Social History Tobacco Use Types Packs/Day Years Used Date Smoking Tobacco: Never Assessed Comments Unknown Sex and Gender Information Value Date Recorded Sex Assigned at Not on file Legal Sex Female 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 Gender Identity Not on file Sexual Orientation Not on file Plan of Treatment Health Maintenance Due Date Last Done Comments Colorectal Cancer Screening Colonoscopy (10 Years) 1959 Hepatitis C 1977 Zoster Vaccines (1 of 2) 2009 COVID-19 Vaccine (2023-2 5 season) 2024 01/04/2021, 12/14/2020 Influenza Adult (#1) 2024 08/25/2011 Dexa Scan (General) 2024 Pneumococcal Vaccine: 65+ Years (1 of 1 - PCV) 2024 Mammogram Screening 12/13/2025 12/13/2023 DTaP, Tdap and Td Vaccines ( 2 - Td or Tdap) 11/10/2032 11/10/2022 RSV Immunization or 60+ Years (1 - 1-dose 75+ series) 2034 Meningococcal B Vaccine Aged Out No l onger eligible based on patient's age to complete this topic Meningococcal Vaccine Aged Out No yoli nick eligible based on patient's age to complete this topic Pneumococcal Vaccine: Pediatrics (0 to 5 Years) and At-Risk Patients (6 to 64 Years) Aged Out No longer eligible b ased on patient's age to complete this topic RSV Immunizations Under 20 Months Aged Out No longer eligible b ased on patient's age to complete this topic Procedures Procedure Name Priority Date/Time Associated Diagnosis Comments MG SCREENING W NEY PEDRO DIGI Routine 12/13/2023 9:55 AM RESTAURANT OPERATIONS MANAGER Encounter for screening mammogram for malignant neoplasm of breast from Last 3 Months or Most Recently Relevant to Health Maintenance Results * MG SCREENING W NEY PEDRO DIGI (12/13/2023 9:55 AM RESTAURANT OPERATIONS MANAGER) Anatomical Region Laterality Modality Breast Bilateral Mammography 12/13/2023 11:5 5 AM RESTAURANT OPERATIONS MANAGER Narrative 12/13/2023 11:56 AM RESTAURANT OPERATIONS MANAGER Examination: Digital screening mammogram with CAD. Clinical history: Asymptomatic patient presents for routine screening. New baseline. Comparison: None. Prior studies are outdated. Technique: Bilateral digital mammograms. The exam was interpreted with the use of a computer-aided detection (CAD) system. Additional 3-D tomosynthesis images were acquired. Tissue density: The breast tissue is heterogeneously dense. Findings: The breast tissue is heterogeneously dense. The dense tissue may obscure some lesions mammographically. The denser tissues lie anteriorly. Benign-appearing calcification noted. No suspicious mass, microcalcification or area of architectural distortion can be identified. From a mammographic standpoint, routine followup in one year would seem adequate. IMPRESSION: Moderately dense breasts. No mammographic evidence of malignancy. Recommendation: 1: Routine Screening Bilateral in 1 Year Assessment: ACR BI-RADS 2 - BENIGN FINDING(S) Ordered By: SHAHIDA GUNN Interpreted By: Isaiah Mirza MD, 12/13/2023 11:55 AM us Shahida Gunn MD MAMMO Final Resu lt from Last 3 Months or Most Recently Relevant to Health Maintenance Insurance MEDICAID Care Teams Septic Tank Service Technician Relationship Specialty Start Date End Date A, Unknown Practice [address] [place] [id number] PCP - General 12/08/23
--- OUTSIDE RECORDS SUMMARY | 2024-12-31 12:33 | XMS_ITS | Clinical Summary ---
Author Organization [facility] [employer] Address [address] [place] [address] Care Team Providers Care Field Service Poultry Technician Name Role Phone Unavailable Primary Care Provider Unavailabl e Source Comments [facility],non-owned Affiliates and Associated Physician Practices is amultiple site organization consisting of ambulatory clinics and hospital sitesin [place], [place], [place] and [place]. This disclosure is being madepursuant to the Care Everywhere program and may not contain all information available regarding this patient. Last updated 18.[facility] [employer] Social History Tobacco Use Types Packs/Day Years Used Date Smoking Tobacco: Never Assessed Sex and Gender Information Value Date Recorded Sex Assigned at Not on file Gender Identity Not on file Sexual Orientation Not on file Plan of Treatment Health Maintenance Due Date Last Done Comments BONE DENSITY TESTING 1959 COLOGUARD (AGES 45-75) - COL ON CA SCREENING 1959 COLON MONITORING 1959 COLONOSCOPY - COLON CA SCREENING 1959 CT COLONOGRAPHY - COLON CA SCREENING 1959 Colorectal Cancer Screening 1959 FIT - COLON CA SCREENING 1959 FLEX SIG - COLON CA SCREENING 1959 LIPID TESTING 1959 MAMMOGRAM 1959 PAP SMEAR 1959 HIV SCREENING 1974 HEPATITIS C SCREENING 11/12/1977 DTAP/TDAP/TD VACCINES (1 - Tdap) 1978 PNEUMOCOCCAL VACCINE 50+ (1 of 1 - PCV) 2009 ZOSTER VACCINE (1 of 2) 2009 COVID-19 VACCINE ( - 2023-2 5 season) 2024 INFLUENZA VACCINE (#1) 2024 DEPRESSION SCREENING 11/14/2024 Respiratory Syncytial Virus (RSV) Vaccine Pt: or over 60 yrs (1 - 1-dose 75+ series) 2034 HEPATITIS B VACCINE Aged Out No longe r eligible based on patient's age to complete this topic HIB VACCINE Aged Out No longer eligi ble based on patient's age to complete this topic HPV VACCINE Aged Out No longer eligi ble based on patient's age to complete this topic MENINGOCOCCAL (Group B) VACCINE Aged Out No longer eligible based on patient's age to complete this topic MENINGOCOCCAL VACCINE Aged Out No yoli nick eligible based on patient's age to complete this topic
--- OUTSIDE RECORDS SUMMARY | 2024-12-31 12:33 | XMS_ITS | Referral Summary ---
Author Organization [facility] Address [address] [place] [address] Care Team Providers Care Senior Quality Control Inspector Name Role Phone Unavailable Primary Care Provider Unavailabl e Source Comments [facility],non-owned Affiliates and Associated Physician Practices is amultiple site organization consisting of ambulatory clinics and hospital sitesin [place], [place], [place] and [place]. This disclosure is being madepursuant to the Care Everywhere program and may not contain all information available regarding this patient. Last updated 18.[facility] Social History Tobacco Use Types Packs/Day Years Used Date Smoking Tobacco: Never Assessed Sex and Gender Information Value Date Recorded Sex Assigned at Not on file Gender Identity Not on file Sexual Orientation Not on file Plan of Treatment Not on file
--- OUTSIDE RECORDS SUMMARY | 2024-12-31 12:33 | XMS_ITS | Patient Health Summary ---
Author Organization [facility] Address [address] [place] [address] Care Team Providers Care Retail Loss Prevention Specialist Name Role Phone Unavailable Primary Care Provider Unavailabl e Note from [facility],non-owned Affiliates and Associated Physician Practices is amultiple site organization consisting of ambulatory clinics and hospital sitesin [place], [place], [place] and [place]. This disclosure is being madepursuant to the Care Everywhere program and may not contain all information available regarding this patient. Last updated 18.[facility] [email or web address] Social History Tobacco Use Types Packs/Day Years Used Date Smoking Tobacco: Never Assessed Sex and Gender Information Value Date Recorded Sex Assigned at Not on file Gender Identity Not on file Sexual Orientation Not on file
== END 2024-12-31 11:17 | disposition home or self-care (01) ==
PROVIDERS: Emergency Provider Registered Nurse; PCP Family Medicine
DX: J40 Bronchitis, not specified as acute or chronic (principal); E11.9 Type 2 diabetes mellitus without complications; Z79.84 Long term (current) use of oral hypoglycemic drugs; E89.0 Postprocedural hypothyroidism; K21.9 Gastro-esophageal reflux disease without esophagitis; E66.9 Obesity, unspecified
CPT/HCPCS: 99213; G0463